=== PATIENT | female | born 1960 | race Caucasian/White ===

== ENCOUNTER 2024-05-15 18:24 | Inpatient (IN) ==
[2024-05-15] MEDS ORDERED: MAGNESIUM HYDROXIDE 400 MG/5 ML ORAL.SUSP PO PRN (20:16)
[2024-05-15 20:22] LABS: Basophils #(Absolute) Auto 0.1 (0.0-0.1); Basophils%(Percent) Auto 0.4 (0.1-0.85); Eosinophils%(Percent) Auto 0.1 % (0.4-2.8); Mean Corpuscular Volume 93.1 fl (81.0-93.7); Monocytes %(Percent)- Auto 7.7 % (3.6-9.8); Platelet Count 207 K/uL (152-353); White Blood Count 12.8 K/uL (4.3-9.3)
[2024-05-15] MEDS: IPRATROPIUM/ALBUTEROL SULFATE 3 ML AMPUL.NEB INH SCH (20:53)
[2024-05-15] MEDS: CEFTRIAXONE SODIUM 1 GM in 0.9 % SODIUM CHLORIDE MB+ 50 ML IV SCH (21:12)
[2024-05-15] MEDS: ACETAMINOPHEN 500 MG TABLET PO PRN (21:28)
[2024-05-15] MEDS: AZITHROMYCIN 500 MG 500 MG in 0.9 % SODIUM CHLORIDE 250 ML IV SCH (21:57)
[2024-05-16] MEDS: 0.9 % SODIUM CHLORIDE 500 ML IV ONE (00:51)
[2024-05-16] MEDS: PANTOPRAZOLE SODIUM 40 MG TABLET.DR PO SCH (00:51)
[2024-05-16] MEDS: MAGNESIUM OXIDE 400 MG TABLET PO ONE (00:51)
[2024-05-16] MEDS: METHYLPREDNISOLONE SOD SUCC/PF 40 MG/ML VIAL INJ SCH (00:52)
[2024-05-16] MEDS: 0.9 % SODIUM CHLORIDE 1000 ML 1,000 ML IV SCH (01:34)
[2024-05-16 05:58] LABS: Basophils%(Percent) Auto 0.2 (0.1-0.85); Granulocytes % - Auto 91.4 % (47.8-71.3); Granulocytes#(Absolute)- Auto 7.9 (2.3-6.0); Hematocrit 29.3 % (35.9-46.7); Mean Corpuscular Volume 93.3 fl (81.0-93.7); Monocytes #(Absolute)- Auto 0.3 (1.1-3.1); Monocytes %(Percent)- Auto 2.9 % (3.6-9.8); Platelet Count 181 K/uL (152-353); White Blood Count 8.6 K/uL (4.3-9.3)
[2024-05-16 06:55] LABS: PH BODY FLUID EXCP BLOOD 7.5 (5 - 9); Specific Gravity Urine 1.015 (1.001-1.035); Urine Appearance HAZY (CLEAR); Urine Blood NEGATIVE (NEG - TRACE); Urine Color DARK YELLOW (STRAW/YELL.); Urine Urobilinogen Normal (NORMAL)
[2024-05-16 06:56] LABS: Urine Amorphous Sediment Negative (Negative); Urine Yeast Negative (Negative)
[2024-05-16] MEDS: BUDESONIDE 0.5 MG/2 ML AMPUL.NEB INH SCH (07:42)
[2024-05-16] MEDS ORDERED: PANTOPRAZOLE SODIUM 40 MG TABLET.DR PO SCH (09:00)
[2024-05-16] MEDS: ENOXAPARIN SODIUM 40 MG/0.4 ML SYRINGE SUBQ SCH (10:03)
[2024-05-16] MEDS ORDERED: FLUCONAZOLE 10 MG/ML PO SCH (12:45)
[2024-05-16] MEDS: HYDROCODONE/CHLORPHEN P-STIREX 5 ML SUS.ER.12H PO SCH (15:54)
[2024-05-16] MEDS: FLUCONAZOLE-NACL 200 MG/100 ML 200 MG/100 ML PIGGYBACK IV ONE ×2 (15:54→15:58)
[2024-05-16] MEDS: LEVOTHYROXINE SODIUM 75 MCG TABLET PO SCH (15:58)
--- NOTE | 2024-05-16 16:36 | History & Physical Report ---
H&P: HPI History of Present Illness Chief complaint: PNEUMONIA Narrative: Patient is a 64 year old female direct admitted to med/surg for observation and treatment for pneumonia, failed out-patient treatment, and history of seizure. She states she got a chill Tuesday night and just was not able to get warm. Chief complaint today, patient feels weak, mouth is sore (has developed thrush secondary to prior antibiotics), and abdomen tender secondary to cough. Review of Systems Status of ROS 10 or more systems reviewed and unremark able except as noted in history and below Constitutional Reports: fever, chills and fatigue; Denies: change in weight Eyes Denies: change in vision, blurry vision or blind spots Ears, nose, mouth, and throat Reports: hoarseness and mouth pain; Denies: throat pain, neck pain, throat swelling, difficulty swallowing, swelling of lips/tongue or dry mouth Cardiovascular Denies: chest pain, palpitations, edema, swelling of feet/ankles or lightheadedness Respiratory Reports: shortness of breath, cough and wheezing Gastrointestinal Reports: abdominal pain (secondary to coughing); Denies: nausea, vomiting, coffee grounds in vomit, heartburn or diarrhea Genitourinary Denies: painful urination, urinary frequency, urinary urgency or urinary incontinence Musculoskeletal Denies: back pain, neck pain, extremity pain or extremity swelling Integumentary/Breast Denies: rash, itching, redness, skin pain or skin tenderness Neurological Denies: headache, numbness in extremities, weakness in extremities or lack of coordination Psychiatric Denies: anxiety, mood swings, panic attacks, change in sleep pattern or hopelessness Endocrine Denies: excessive urination, excessive thirst, fatigue or cold intolerance Hematologic/Lymphatic Denies: easy bruising, easy bleeding or enlarged lymph nodes Allergic/Immunologic Denies: hives, throat swelling, tongue swelling or facial swelling PFSH PFSH Medical History (Updated 05/16/24 @ 16:00 by NATALIIA Zacarias) Hypothyroidism Squamous cell carcinoma Hypertension Surgical History (Updated 05/16/24 @ 05:58 by Lanny Odonnell LPN) History of hemorrhoidectomy History of tonsillectomy History of cholecystectomy Social History Problems where you live: no known problems Highest level of school completed/degree received: [employer] Gender Identity: female Meds Home Medications and Allergies Home Medications Medication Instructions Recorded Confirmed Type alendronate 70 mg tablet 70 mg PO QWEEK 05/16/24 05/16/24 History calcium carbonate (Calcium 600) 600 mg PO DAILY 05/16/24 05/16/24 History divalproex 250 mg tablet,extended 500 mg PO BID 05/16/24 05/16/24 History release 24 hr hydrochlorothiazide 12.5 mg tablet 12.5 mg PO DAILY 05/16/24 05/16/24 History levothyroxine 75 mcg tablet 75 mcg PO QDAC 05/16/24 05/16/24 History Allergies Allergy/AdvReac Type Severity Reaction Status Date / Time No Known Drug Allergies Allergy Verified 05/15/24 20:08 Exam Exam: Patient in low miller's position upon entering room for exam. Patient's was at bedside. Constitutional: abnormal general appearance (lethargic), distress noted (mild), average body habitus, no limitations and alert Vital Signs - 24 hr 05/15/24 20:24 05/15/24 20:24 05/15/24 20:42 Temperature 98.4 F Pulse Rate [Left B rachial] 115 H Respiratory Rate 18 Blood Pressure [Le ft Arm] 146/57 Pulse Oximetry 98 95 [facility] 05/16/24 00:00 05/16/24 02:12 05/16/24 04:00 Temperature 98.5 F 98.5 F Pulse Rate [Left B rachial] 88 73 Respiratory Rate 17 17 Blood Pressure [Le ft Arm] 100/40 110/56 Pulse Oximetry 95 96 96 [facility] Air 05/16/24 07:42 05/16/24 08:00 05/16/24 12:00 Temperature 97.6 F 98.8 F Pulse Rate [Left B rachial] 87 74 Respiratory Rate 18 18 Blood Pressure [Le ft Arm] 122/55 113/52 Pulse Oximetry 98 96 94 L [facility] Room Air 05/16/24 14:51 Temperature Pulse Rate [Left B rachial] Respiratory Rate Blood Pressure [Le ft Arm] Pulse Oximetry 98 [facility] HENMT: normocephalic, head/scalp atraumatic, hearing grossly normal bilaterally, external ears normal, external nose normal, oropharynx abnormal (erythema) and gingiva abnormal Eyes: PERRL, conjunctivae normal, fundi normal bilaterally, alignment normal, periorbital findings normal and visual acuity normal Neck/C-Spine: visual inspection normal, trachea midline, cervical spine nontender, cervical full ROM noted and supple Lymph: no lymphadenopathy noted and no lymphedema noted Chest: inspection of chest normal and palpation of chest normal Respiratory: breath sounds unequal (R>L), abnormal respiratory effort (shallow breathing) and auscultation abnormal (diminished breath sound) and (bronchial breath sounds) (R middle lobe) Cardiovascular: normal heart rate noted, regular rhythm noted and no murmur Gastrointestinal: abdomen normal to inspection, abdomen soft to palpation, nontender to palpation, nondistended and normoactive bowel sounds Genitourinary: no CVA tenderness and bladder normal to palpation Back/Pelvis: spine normal to inspection, no thoracic spine tenderness, no lumbar spine tenderness, thoracic spine ROM normal and lumbar spine ROM normal Extremities: normal to inspection, normal to palpation, no tenderness, full ROM, no joint enlargement and no deformity Neurology: tub mender II-XII intact, no movement abnormality noted, no focal motor deficit noted, no sensory deficits noted, deep tendon reflexes 2+ bilaterally, gait normal, speech abnormality noted (hoarse) and coordination normal Psychiatry: Mental Status Exam documented within this Exam's Psych section mental status grossly normal, oriented x3, thought process normal, cooperative, affect normal, psychomotor activity normal and memory normal Skin: skin color normal, no rash, no lesions, no wounds and skin turgor normal Assessment and Plan Assessment and Plan (1) Pneumonia: Qualifiers: Pneumonia type: due to Pneumococcus Laterality: right Lung location: middle lobe of lung Qualified Code(s): J13 - Pneumonia due to Streptococcus pneumoniae Code(s): J18.9 - Pneumonia, unspecified organism (2) History of seizures: Code(s): Z87.898 - Personal history of other specified conditions (3) Thrush, oral: Code(s): B37.0 - Candidal stomatitis (4) Cough: Qualifiers: Cough type: acute Qualified Code(s): R05.1 - Acute cough Code(s): R05.9 - Cough, unspecified (5) Fever: Qualifiers: Fever type: due to other condition Qualified Code(s): R50.81 - Fever presenting with conditions classified elsewhere Code(s): R50.9 - Fever, unspecified (6) General weakness: Code(s): R53.1 - Weakness Plan Sodium Chloride 1,000 mls @ 125 mls/hr IV CONT Albuterol Sulfate 3 ml INH Q6H Ceftriaxone Sodium 1 gm in Sodium Chloride 50 mls @ 100 mls/hr IV DAILY Azithromycin 500 mg in Sodium Chloride 250 mls @ 250 mls/hr IV DAILY Pantoprazole Sodium 40 mg PO Q12H Methylprednisolone Sodium Succinate 40 mg INJ Q8H Enoxaparin Sodium 40 mg SUBQ DAILY Budesonide 1 mg INH RBID Chlorphenir/Hydrocodone Polistirex 5 ml PO Q12H Levothyroxine Sodium 75 mcg PO QDAC Divalproex Sodium 500 mg PO BID Fluconazole 100 mg in 50 mls @ 50 mls/hr IV Q24H Sodium Chloride 3 ml INH ONCE Acetaminophen 500 mg PO Q6H PRN Magnesium Hydroxide 2,400 mg PO DAILY PRN Results Labs Labs: CBC WBC 8.6 K/uL (4.3-9.3) 05/16/24 05:30 RBC 3.1 M/uL (4.00-5.50) L 05/16/24 05:30 Hgb 10.2 gm/dL (12.5-15.8) L 05/16/24 05:30 Hct 29.3 % (35.9-46.7) L 05/16/24 05:30 MCV 93.3 fl (81.0-93.7) 05/16/24 05:30 MCH 32.7 pg (27.6-32.2) H 05/16/24 05:30 MCHC 35.0 g/dl (33.1-35.3) 05/16/24 05:30 RDW 14.2 % (11.4-14.2) 05/16/24 05:30 Plt Count 181 K/uL (152-353) 05/16/24 05:30 MPV 8.4 fl (6.9-10.8) 05/16/24 05:30 Gran % 91.4 % (47.8-71.3) H 05/16/24 05:30 Lymph % (Auto) 5.5 % (20.0-43.0) L 05/16/24 05:30 [place] % (Auto) 2.9 % (3.6-9.8) L 05/16/24 05:30 Eos % (Auto) 0.0 % (0.4-2.8) L 05/16/24 05:30 Baso % (Auto) 0.2 (0.1-0.85) 05/16/24 05:30 Lymph # (Auto) 0.5 (1.1-3.1) L 05/16/24 05:30 [place] # (Auto) 0.3 (1.1-3.1) L 05/16/24 05:30 Eos # (Auto) 0.0 (0.0-0.2) 05/16/24 05:30 Baso # (Auto) 0.0 (0.0-0.1) 05/16/24 05:30 Absolute Gran (auto) 7.9 (2.3-6.0) H 05/16/24 05:30 BMP Sodium 134 mmol/L (136-145) L 05/16/24 05:30 Potassium 4.0 mmol/L (3.6-5.2) 05/16/24 05:30 Chloride 98.0 mmol/L (98-107) 05/16/24 05:30 Carbon Dioxide 30 mmol/L (21-32) 05/16/24 05:30 Anion Gap 6.0 mEq/L (4-14) 05/16/24 05:30 BUN 12 mg/dL (7-18) 05/16/24 05:30 Creatinine 0.7 mg/dL (0.6-1.3) 05/16/24 05:30 Estimated GFR 95.3 (>59.9) 05/16/24 05:30 Glucose 139 mg/dL (70-110) H 05/16/24 05:30 Calcium 9.4 mg/dL (8.5-10.1) 05/16/24 05:30 Phosphorus 3.7 mg/dL (2.5-4.9) 05/16/24 05:30 Magnesium 1.7 mg/dL (1.8-2.4) L 05/16/24 05:30 Total Bilirubin 0.37 mg/dL (0.0-1.0) 05/16/24 05:30 AST 13 U/L (15-37) L 05/16/24 05:30 ALT 11 U/L (30-65) L 05/16/24 05:30 Alkaline Phosphatase 46 U/L (50-136) L 05/16/24 05:30 Total Protein 6.4 g/dL (6.4-8.2) 05/16/24 05:30 Albumin 2.5 g/dL (3.4-5.0) L 05/16/24 05:30 Liver Function Total Bilirubin 0.37 mg/dL (0.0-1.0) 05/16/24 05:30 AST 13 U/L (15-37) L 05/16/24 05:30 ALT 11 U/L (30-65) L 05/16/24 05:30 Alkaline Phosphatase 46 U/L (50-136) L 05/16/24 05:30 Total Protein 6.4 g/dL (6.4-8.2) 05/16/24 05:30 Albumin 2.5 g/dL (3.4-5.0) L 05/16/24 05:30 Urine Urine Color Dark yellow (STRAW/YELL.) 05/16/24 06:40 Urine Appearance Hazy (CLEAR) 05/16/24 06:40 Ur Specific [place] 1.015 (1.001-1.035) 05/16/24 06:40 Urine Protein Negative (NEGATIVE) 05/16/24 06:40 Urine Glucose (UA) Normal (NORMAL) 05/16/24 06:40 Urine Ketones Negative (NEGATIVE) 05/16/24 06:40 Urine Occult Blood Negative (NEG - TRACE) 05/16/24 06:40 Urine Nitrite Negative (NEGATIVE) 05/16/24 06:40 Urine Bilirubin Negative (NEGATIVE) 05/16/24 06:40 Urine Urobilinogen Normal (NORMAL) 05/16/24 06:40 Ur Leukocyte Esterase Positive (NEGATIVE) 05/16/24 06:40 Imaging Imaging ordered: Chest x-ray Radiologist's impression: Two-view chest Date of Service: 05/15/24 HISTORY: Pneumonia COMPARISON: 05/18/2023 FINDINGS: Heart size is normal. Nora are normal. Lungs well inflated. Right lung and left upper lung skinner are clear. There is some peribronchial infiltrate in the retrocardiac area medial left lung base likely a small area of pneumonia. No pleural effusions are identified. Bony thorax is unremarkable IMPRESSION: Medial basal lung infiltrate likely bronchopneumonia
[2024-05-16] MEDS: SODIUM CHLORIDE FOR INHALATION 3 ML VIAL.NEB INH ONE ×2 (17:27→17:28)
[2024-05-16] MEDS: DIVALPROEX SODIUM 250 MG TAB.ER.24H PO SCH (20:25)
[2024-05-17 04:26] LABS: Basophils%(Percent) Auto 0.2 (0.1-0.85); Granulocytes % - Auto 92.1 % (47.8-71.3); Granulocytes#(Absolute)- Auto 6.1 (2.3-6.0); Hematocrit 26.5 % (35.9-46.7); Mean Corpuscular Volume 92.9 fl (81.0-93.7); Monocytes #(Absolute)- Auto 0.2 (1.1-3.1); Monocytes %(Percent)- Auto 3.5 % (3.6-9.8); Platelet Count 163 K/uL (152-353); White Blood Count 6.7 K/uL (4.3-9.3)
[2024-05-17 05:24] LABS: Potassium 3.2 mmol/L (3.6-5.2)
--- NOTE | 2024-05-17 10:11 | Progress Note ---
Progress Note: Subjective Subjective Interval history: Patient has a chief complaint today of itching. She noticed itching started yesterday after lunch time, no hives/rashes/lesion visible. Physical therapy to start chest percussions today. Nurse continues to encourage ambulating and use of I & S for good deep breaths. Morning lab work reflect a need for electrolyte replenishment. Exam Exam: Patient up in recliner at time of exam. Constitutional: abnormal general appearance (lethargic), distress noted (mild), average body habitus, no limitations and alert Vital Signs - 24 hr 05/16/24 12:00 05/16/24 14:51 05/16/24 16:00 Temperature 98.8 F 97.8 F Pulse Rate [Left B rachial] 74 87 Respiratory Rate 18 18 Blood Pressure [Le ft Arm] 113/52 116/45 Pulse Oximetry 94 L 98 94 L Oxygen Delivery [facility] Room Air Room Air 05/16/24 19:18 05/16/24 20:24 05/16/24 23:17 Temperature 98.3 F 98.3 F Pulse Rate [Left B rachial] 75 81 Respiratory Rate 17 19 Blood Pressure [Le ft Arm] 96/42 114/38 Pulse Oximetry 96 96 95 Oxygen Delivery [facility] Room Air 05/17/24 02:00 05/17/24 03:49 05/17/24 07:32 Temperature 97.8 F Pulse Rate [Left B rachial] 85 Respiratory Rate 18 Blood Pressure [Le ft Arm] 91/34 Pulse Oximetry 96 94 L 94 L Oxygen Delivery [facility] Room Air 05/17/24 07:47 Temperature 97.5 F L Pulse Rate [Left B rachial] 75 Respiratory Rate 18 Blood Pressure [Le ft Arm] 118/56 Pulse Oximetry 93 L Oxygen Delivery [facility] Room Air HENMT: normocephalic, head/scalp atraumatic, hearing grossly normal bilaterally, external ears normal, external nose normal, oropharynx abnormal (erythema) and gingiva abnormal Eyes: PERRL, conjunctivae normal, fundi normal bilaterally, alignment normal, periorbital findings normal and visual acuity normal Neck/C-Spine: visual inspection normal, trachea midline, cervical spine nontender, cervical full ROM noted and supple Lymph: no lymphadenopathy noted and no lymphedema noted Chest: inspection of chest normal and palpation of chest normal Respiratory: breath sounds unequal (Left), abnormal respiratory effort (shallow breathing) and auscultation abnormal (diminished breath sound) (LL Lobe some sub-segmental atelectasis) Cardiovascular: normal heart rate noted, regular rhythm noted and no murmur Gastrointestinal: abdomen normal to inspection, abdomen soft to palpation, nontender to palpation, nondistended and normoactive bowel sounds Genitourinary: no CVA tenderness and bladder normal to palpation Back/Pelvis: spine normal to inspection, no thoracic spine tenderness, no lumbar spine tenderness, thoracic spine ROM normal and lumbar spine ROM normal Extremities: normal to inspection, normal to palpation, no tenderness, full ROM, no joint enlargement and no deformity Neurology: coupler II-XII intact, no movement abnormality noted, no focal motor deficit noted, no sensory deficits noted, deep tendon reflexes 2+ bilaterally, gait normal, speech abnormality noted (hoarse) and coordination normal Psychiatry: Mental Status Exam documented within this Exam's Psych section mental status grossly normal, oriented x3, thought process normal, cooperative, affect normal, psychomotor activity normal and memory normal Skin: skin color normal, no rash, no lesions, no wounds and skin turgor normal Progress Note: Objective Labs Labs: CBC WBC 6.7 K/uL (4.3-9.3) 05/17/24 04:20 RBC 2.9 M/uL (4.00-5.50) L 05/17/24 04:20 Hgb 9.3 gm/dL (12.5-15.8) L 05/17/24 04:20 Hct 26.5 % (35.9-46.7) L 05/17/24 04:20 MCV 92.9 fl (81.0-93.7) 05/17/24 04:20 MCH 32.6 pg (27.6-32.2) H 05/17/24 04:20 MCHC 35.1 g/dl (33.1-35.3) 05/17/24 04:20 RDW 14.3 % (11.4-14.2) H 05/17/24 04:20 Plt Count 163 K/uL (152-353) 05/17/24 04:20 MPV 8.4 fl (6.9-10.8) 05/17/24 04:20 Gran % 92.1 % (47.8-71.3) H 05/17/24 04:20 Lymph % (Auto) 4.2 % (20.0-43.0) L 05/17/24 04:20 [place] % (Auto) 3.5 % (3.6-9.8) L 05/17/24 04:20 Eos % (Auto) 0.0 % (0.4-2.8) L 05/17/24 04:20 Baso % (Auto) 0.2 (0.1-0.85) 05/17/24 04:20 Lymph # (Auto) 0.3 (1.1-3.1) L 05/17/24 04:20 [place] # (Auto) 0.2 (1.1-3.1) L 05/17/24 04:20 Eos # (Auto) 0.0 (0.0-0.2) 05/17/24 04:20 Baso # (Auto) 0.0 (0.0-0.1) 05/17/24 04:20 Absolute Gran (auto) 6.1 (2.3-6.0) H 05/17/24 04:20 BMP Sodium 129 mmol/L (136-145) L 05/17/24 04:20 Potassium 3.2 mmol/L (3.6-5.2) L 05/17/24 04:20 Chloride 94.0 mmol/L (98-107) L 05/17/24 04:20 Carbon Dioxide 26 mmol/L (21-32) 05/17/24 04:20 Anion Gap 9.0 mEq/L (4-14) 05/17/24 04:20 BUN 11 mg/dL (7-18) 05/17/24 04:20 Creatinine 0.6 mg/dL (0.6-1.3) 05/17/24 04:20 Estimated GFR 98.9 (>59.9) 05/17/24 04:20 Glucose 177 mg/dL (70-110) H 05/17/24 04:20 Calcium 8.1 mg/dL (8.5-10.1) L 05/17/24 04:20 Phosphorus 2.2 mg/dL (2.5-4.9) L 05/17/24 04:20 Magnesium 1.7 mg/dL (1.8-2.4) L 05/17/24 04:20 Total Bilirubin 0.16 mg/dL (0.0-1.0) 05/17/24 04:20 AST 15 U/L (15-37) 05/17/24 04:20 ALT 17 U/L (30-65) L 05/17/24 04:20 Alkaline Phosphatase 43 U/L (50-136) L 05/17/24 04:20 Total Protein 5.8 g/dL (6.4-8.2) L 05/17/24 04:20 Albumin 2.3 g/dL (3.4-5.0) L 05/17/24 04:20 Liver Function Total Bilirubin 0.16 mg/dL (0.0-1.0) 05/17/24 04:20 AST 15 U/L (15-37) 05/17/24 04:20 ALT 17 U/L (30-65) L 05/17/24 04:20 Alkaline Phosphatase 43 U/L (50-136) L 05/17/24 04:20 Total Protein 5.8 g/dL (6.4-8.2) L 05/17/24 04:20 Albumin 2.3 g/dL (3.4-5.0) L 05/17/24 04:20 Urine Urine Color Dark yellow (STRAW/YELL.) 05/16/24 06:40 Urine Appearance Hazy (CLEAR) 05/16/24 06:40 Ur Specific [place] 1.015 (1.001-1.035) 05/16/24 06:40 Urine Protein Negative (NEGATIVE) 05/16/24 06:40 Urine Glucose (UA) Normal (NORMAL) 05/16/24 06:40 Urine Ketones Negative (NEGATIVE) 05/16/24 06:40 Urine Occult Blood Negative (NEG - TRACE) 05/16/24 06:40 Urine Nitrite Negative (NEGATIVE) 05/16/24 06:40 Urine Bilirubin Negative (NEGATIVE) 05/16/24 06:40 Urine Urobilinogen Normal (NORMAL) 05/16/24 06:40 Ur Leukocyte Esterase Positive (NEGATIVE) 05/16/24 06:40 Imaging Chest x-ray: Radiologist's impression: Two-view chest Date of Service: 05/17/24 HISTORY: Follow-up pneumonia COMPARISON: 05/15/2023 FINDINGS: Heart size is normal. Nora are normal. Lungs are hyperinflated. Right lung and left upper lung skinner remain clear. There is improvement in the previously present retrocardiac left lower lobe infiltrate however there is some new subsegmental atelectasis present within the affected area. Continued follow-up until complete resolution is recommended. No pleural effusions identified. Bony thorax is unremarkable. IMPRESSION: Improving retrocardiac left lower lobe infiltrate but now with some subsegmental atelectasis present. Continued follow-up until complete resolution is recommended. Progress Note: A&P Assessment and Plan (1) Pneumonia: Qualifiers: Pneumonia type: due to Pneumococcus Laterality: right Lung location: middle lobe of lung Qualified Code(s): J13 - Pneumonia due to Streptococcus pneumoniae (2) History of seizures: (3) Thrush, oral: (4) Cough: Qualifiers: Cough type: acute Qualified Code(s): R05.1 - Acute cough (5) Fever: Qualifiers: Fever type: due to other condition Qualified Code(s): R50.81 - Fever presenting with conditions classified elsewhere (6) General weakness: Plan Sodium Chloride 1,000 mls @ 125 mls/hr IV CONT Albuterol Sulfate 3 ml INH Q6H Ceftriaxone Sodium 1 gm in Sodium Chloride 50 mls @ 100 mls/hr IV DAILY Azithromycin 500 mg in Sodium Chloride 250 mls @ 250 mls/hr IV DAILY Pantoprazole Sodium 40 mg PO Q12H Methylprednisolone Sodium Succinate 40 mg INJ Q8H Enoxaparin Sodium 40 mg SUBQ DAILY Budesonide 1 mg INH RBID Chlorphenir/Hydrocodone Polistirex 5 ml PO Q12H Levothyroxine Sodium 75 mcg PO QDAC Divalproex Sodium 500 mg PO BID Fluconazole 100 mg in 50 mls @ 50 mls/hr IV Q24H Sodium Chloride 3 ml INH ONCE Acetaminophen 500 mg PO Q6H PRN Magnesium Hydroxide 2,400 mg PO DAILY PRN Repeat CXR this AM Stop steroid PT to start CP Encourage ambulating and use of I&S for deep breathing Fall Risk Details Abdi Fall Scale Risk Level: Moderate Fall Risk Current Medications: Current Medications Acetaminophen (Acetaminophen 500 Mg Tablet) 500 mg PO Q6H PRN PRN Reason: Headache Last Admin: 05/15/24 21:28 Dose: 500 mg Al Hydroxide/Mg Hydroxide (Magnesium Hydroxide 400 Mg/5 Ml Oral.Susp) 2,400 mg PO DAILY PRN PRN Reason: CONSTIPATION Albuterol Sulfate (Ipratropium/Albuterol Sulfate 3 Ml Ampul.Neb) 3 ml INH Q6H [facility] Last Admin: 05/17/24 07:32 Dose: 3 ml Budesonide (Budesonide 0.5 Mg/2 Ml Ampul.Neb) 1 mg INH RBID [facility] Last Admin: 05/17/24 07:32 Dose: 1 mg Chlorphenir/Hydrocodone Polistirex (Hydrocodone/Chlorphen P-Stirex 5 Ml Citlaly.Er.12h) 5 ml PO Q12H [facility] Last Admin: 05/17/24 02:18 Dose: 5 ml Divalproex Sodium (Divalproex Sodium 250 Mg Tab.Er.24h) 500 mg PO BID [facility] Last Admin: 05/17/24 08:56 Dose: Not Given Enoxaparin Sodium (Enoxaparin Sodium 40 Mg/0.4 Ml Syringe) 40 mg SUBQ DAILY [facility] Last Admin: 05/17/24 08:55 Dose: 40 mg Hydroxyzine HCl (Hydroxyzine Hcl 25 Mg Tablet) 25 mg PO Q4H PRN PRN Reason: Itching Ceftriaxone Sodium 1 gm/ (Sodium Chloride) 50 mls @ 100 mls/hr IV DAILY [facility] Last Admin: 05/17/24 08:55 Dose: 100 mls/hr Azithromycin 500 mg/ Sodium (Chloride) 250 mls @ 250 mls/hr IV DAILY [facility] Last Admin: 05/17/24 08:55 Dose: 167 mls/hr Sodium Chloride (Sodium Chloride) 1,000 mls @ 125 mls/hr IV CONT [facility] Last Admin: 05/17/24 02:18 Dose: 125 mls/hr Fluconazole (Fluconazole-Nacl 200 Mg/100 Ml) 100 mg in 50 mls @ 50 mls/hr IV Q24H [facility] Potassium Chloride (Potassium Cl 10 Meq/100 Ml [place]) 10 meq in 100 mls @ 100 mls/hr IV ONCE RICHAR Potassium Chloride (Potassium Cl 10 Meq/100 Ml [place]) 10 meq in 100 mls @ 100 mls/hr IV ONCE [facility] Albumin Human (Albumin Human 25%) 100 mls @ 60 mls/hr IV Q2H [facility] Stop: 05/17/24 13:39 Levothyroxine Sodium (Levothyroxine Sodium 75 Mcg Tablet) 75 mcg PO QDAC [facility] Last Admin: 05/17/24 08:55 Dose: 75 mcg Loratadine (Loratadine 5 Mg/5 Ml Solution) 10 mg PO DAILY [facility] Magnesium (Magnesium Oxide 400 Mg Tablet) 400 mg PO ONCE ONE Stop: 05/17/24 09:42 Methylprednisolone Sodium Succinate (Methylprednisolone Sod Succ/Pf 40 Mg/Ml Vial) 40 mg INJ Q8H [facility] Last Admin: 05/17/24 08:55 Dose: 40 mg Pantoprazole Sodium (Pantoprazole Sodium 40 Mg Tablet.Dr) 40 mg PO Q12H [facility] Last Admin: 05/17/24 02:18 Dose: 40 mg Potassium Chloride (Potassium Chloride 20 Meq Tab.Er.Prt) 40 meq PO ONCE ONE Stop: 05/17/24 09:42 Potassium Phosphate (Potassium Phosphate 500 Mg Tablet.[place]) 500 mg PO ONCE ONE Stop: 05/17/24 09:42 Sodium Chloride (Sodium Chloride 1,000 Mg Tablet) 1,000 mg PO Q12H [facility] Time Spent With Patient Time: Total time spent is greater than 50% in coordination of care (as documented) at patient's floor/unit and/or counseling patient:
[2024-05-17] MEDS: POTASSIUM CHLORIDE IN WATER 10 MEQ/100 ML PIGGYBACK IV ONE ×2 (10:46→12:06)
[2024-05-17] MEDS: MAGNESIUM OXIDE 400 MG TABLET PO ONE (10:46)
[2024-05-17] MEDS: SODIUM CHLORIDE 1,000 MG TABLET PO SCH (10:47)
[2024-05-17] MEDS: POTASSIUM CHLORIDE 20 MEQ TAB.ER.PRT PO ONE (10:47)
[2024-05-17] MEDS: LORATADINE 5 MG/5 ML PO SCH (10:47)
[2024-05-17] MEDS: hydrOXYzine HCL 25 MG TABLET PO PRN (10:47)
[2024-05-17] MEDS: POTASSIUM PHOSPHATE 500 MG TABLET.SOL PO ONE (10:47)
[2024-05-17] MEDS: ALBUMIN HUMAN 25% 100 ML IV SCH (10:47)
[2024-05-17] MEDS: FLUCONAZOLE IV SCH (13:28)
[2024-05-17] MEDS: SODIUM CHLORIDE IV SCH (13:28)
[2024-05-17] MEDS: FUROSEMIDE 20 MG/2 ML VIAL IV ONE (17:55)
[2024-05-18 05:14] LABS: Monocytes #(Absolute)- Auto 0.4 (1.1-3.1)
[2024-05-18 05:17] LABS: Basophils%(Percent) Auto 0.1 (0.1-0.85); Granulocytes % - Auto 88.8 % (47.8-71.3); Granulocytes#(Absolute)- Auto 7.7 (2.3-6.0); Hematocrit 26.9 % (35.9-46.7); Mean Corpuscular Volume 93.7 fl (81.0-93.7); Monocytes %(Percent)- Auto 4.7 % (3.6-9.8); Platelet Count 187 K/uL (152-353); White Blood Count 8.7 K/uL (4.3-9.3)
[2024-05-18 05:32] LABS: Potassium 2.7 mmol/L (3.6-5.2)
--- NOTE | 2024-05-18 05:58 | Event Note ---
Event Note Event Note: 0550 - Call rec'd from MILES Betancourt, who reports a critically low PO4 of 1.3. Weight = 74.54kg. 3mmol Phosphorus in 250ml's NS to infuse over 6hrs with repeat PO4 level 2hrs after infusion complete ordered. K+ 2.7L. 40meq PO KCL x 1 dose now and repeat in 8hrs for total of 80 meq PO KCL ordered with a repeat K+ level 2hrs after second dose ordered.
[2024-05-18] MEDS: POTASSIUM CL 40 MEQ/30 ML 40 MEQ/30 ML LIQUID PO ONE ×2 (06:22→13:52)
[2024-05-18] MEDS: SOD PHOSPHATE IV ONE ×3 (06:50→15:54)
[2024-05-18] MEDS: SODIUM CHLORIDE 0.9% IV ONE ×3 (06:50→15:54)
[2024-05-18] MEDS: 0.9 % SODIUM CHLORIDE 1000 ML 1,000 ML IV SCH (07:14)
[2024-05-18] MEDS: GUAIFENESIN/DEXTROMETHORPHAN 20/200MG/10 ML SOLUTION PO SCH (11:30)
--- NOTE | 2024-05-18 12:08 | Progress Note ---
Progress Note: Subjective Subjective Interval history: Patient sitting up in chair upon entering room. Nurses report no new events overnight. Patient continues to have cough and congestion with SOB upon exertion. Reports eating 1/3 of what she usually eats. Discussed difference and benefit of IS vs. acapella Exam Constitutional: normal general appearance, average body habitus and alert Vital Signs - 24 hr 05/17/24 14:08 05/17/24 16:00 05/17/24 18:26 Temperature 98.4 F Pulse Rate Pulse Rate [Left B rachial] 92 H Respiratory Rate 18 Blood Pressure 109/50 Blood Pressure [Le ft Arm] 109/50 Pulse Oximetry 99 94 L [facility] 05/17/24 19:43 05/17/24 19:55 05/17/24 23:57 Temperature 98.3 F 97.6 F Pulse Rate Pulse Rate [Left B rachial] 70 86 Respiratory Rate 17 19 Blood Pressure Blood Pressure [Le ft Arm] 118/44 128/71 Pulse Oximetry 97 99 94 L Oxygen Delivery [facility] Room Air Room Air 05/18/24 03:10 05/18/24 04:00 05/18/24 07:46 Temperature 97.5 F L 98.3 F Pulse Rate Pulse Rate [Left B rachial] 83 88 Respiratory Rate 18 20 Blood Pressure Blood Pressure [Le ft Arm] 143/71 126/62 Pulse Oximetry 98 97 92 L Oxygen Delivery [facility] Room Air Room Air 05/18/24 08:09 05/18/24 09:40 05/18/24 11:47 Temperature 98.3 F Pulse Rate 67 Pulse Rate [Left B rachial] 82 Respiratory Rate 20 Blood Pressure Blood Pressure [Le ft Arm] 143/68 Pulse Oximetry 92 L 98 Oxygen Delivery [facility] Room Air Room Air HENMT: normocephalic, head/scalp atraumatic, hearing grossly normal bilaterally and external ears normal Eyes: PERRL, EOMs intact bilaterally, conjunctivae normal and no scleral icterus Chest: inspection of chest normal Respiratory: breath sounds equal bilaterally, abnormal respiratory effort (labored) and no rales Cardiovascular: normal heart rate noted, regular rhythm noted, no gallop, no rub and no murmur Gastrointestinal: abdomen normal to inspection, nontender to palpation and nontender to percussion Genitourinary: no CVA tenderness Extremities: normal to inspection, normal to palpation, no tenderness and full ROM Psychiatry: mental status grossly normal, oriented x3 and cooperative Skin: skin color normal, no rash, no lesions and no ecchymosis noted Progress Note: Objective Labs Labs: CBC WBC 8.7 K/uL (4.3-9.3) 05/18/24 04:28 RBC 2.9 M/uL (4.00-5.50) L 05/18/24 04:28 Hgb 9.6 gm/dL (12.5-15.8) L 05/18/24 04:28 Hct 26.9 % (35.9-46.7) L 05/18/24 04:28 MCV 93.7 fl (81.0-93.7) 05/18/24 04:28 MCH 33.3 pg (27.6-32.2) H 05/18/24 04:28 MCHC 35.5 g/dl (33.1-35.3) H 05/18/24 04:28 RDW 14.2 % (11.4-14.2) 05/18/24 04:28 Plt Count 187 K/uL (152-353) 05/18/24 04:28 MPV 9.4 fl (6.9-10.8) 05/18/24 04: Gran % 88.8 % (47.8-71.3) H 05/18/24 04:28 Lymph % (Auto) 6.4 % (20.0-43.0) L 05/18/24 04:28 [place] % (Auto) 4.7 % (3.6-9.8) 05/18/24 04:28 Eos % (Auto) 0.0 % (0.4-2.8) L 05/18/24 04:28 Baso % (Auto) 0.1 (0.1-0.85) 05/18/24 04:28 Lymph # (Auto) 0.6 (1.1-3.1) L 05/18/24 04:28 [place] # (Auto) 0.4 (1.1-3.1) L 05/18/24 04:28 Eos # (Auto) 0.0 (0.0-0.2) 05/18/24 04:28 Baso # (Auto) 0.0 (0.0-0.1) 05/18/24 04:28 Absolute Gran (auto) 7.7 (2.3-6.0) H 05/18/24 04:28 BMP Sodium 135 mmol/L (136-145) L 05/18/24 04:28 Potassium 2.7 mmol/L (3.6-5.2) L 05/18/24 04:28 Chloride 97.0 mmol/L (98-107) L 05/18/24 04:28 Carbon Dioxide 27 mmol/L (21-32) 05/18/24 04:28 Anion Gap 11.0 mEq/L (4-14) 05/18/24 04:28 BUN 8 mg/dL (7-18) 05/18/24 04:28 Creatinine 0.6 mg/dL (0.6-1.3) 05/18/24 04:28 Estimated GFR 98.9 (>59.9) 05/18/24 04:28 Glucose 155 mg/dL (70-110) H 05/18/24 04:28 Calcium 8.1 mg/dL (8.5-10.1) L 05/18/24 04:28 Phosphorus 1.3 mg/dL (2.5-4.9) L* 05/18/24 04:28 Magnesium 1.8 mg/dL (1.8-2.4) 05/18/24 04:28 Total Bilirubin 0.18 mg/dL (0.0-1.0) 05/18/24 04:28 AST 13 U/L (15-37) L 05/18/24 04:28 ALT 21 U/L (30-65) L 05/18/24 04:28 Alkaline Phosphatase 40 U/L (50-136) L 05/18/24 04:28 Total Protein 6.2 g/dL (6.4-8.2) L 05/18/24 04:28 Albumin 3.0 g/dL (3.4-5.0) L 05/18/24 04:28 Liver Function Total Bilirubin 0.18 mg/dL (0.0-1.0) 05/18/24 04:28 AST 13 U/L (15-37) L 05/18/24 04:28 ALT 21 U/L (30-65) L 05/18/24 04:28 Alkaline Phosphatase 40 U/L (50-136) L 05/18/24 04:28 Total Protein 6.2 g/dL (6.4-8.2) L 05/18/24 04:28 Albumin 3.0 g/dL (3.4-5.0) L 05/18/24 04:28 Urine Urine Color Dark yellow (STRAW/YELL.) 05/16/24 06:40 Urine Appearance Hazy (CLEAR) 05/16/24 06:40 Ur Specific [place] 1.015 (1.001-1.035) 05/16/24 06:40 Urine Protein Negative (NEGATIVE) 05/16/24 06:40 Urine Glucose (UA) Normal (NORMAL) 05/16/24 06:40 Urine Ketones Negative (NEGATIVE) 05/16/24 06:40 Urine Occult Blood Negative (NEG - TRACE) 05/16/24 06:40 Urine Nitrite Negative (NEGATIVE) 05/16/24 06:40 Urine Bilirubin Negative (NEGATIVE) 05/16/24 06:40 Urine Urobilinogen Normal (NORMAL) 05/16/24 06:40 Ur Leukocyte Esterase Positive (NEGATIVE) 05/16/24 06:40 Progress Note: A&P Assessment and Plan (1) Klebsiella pneumonia: (2) History of seizures: (3) Thrush, oral: (4) Cough: Qualifiers: Cough type: acute Qualified Code(s): R05.1 - Acute cough (5) Fever: Qualifiers: Fever type: due to other condition Qualified Code(s): R50.81 - Fever presenting with conditions classified elsewhere (6) General weakness: Plan Respiratory therapy for IS and acapella PT for chest PT Encourage ambulating and use of I&S for deep breathing Robitussin for cough and congestion Follow labs Replace Phos Increase fluids O2 Qualifier Fall Risk Details Abdi Fall Scale Risk Level: Low Fall Risk Current Medications: Current Medications Acetaminophen (Acetaminophen 500 Mg Tablet) 500 mg PO Q6H PRN PRN Reason: Headache Last Admin: 05/15/24 21:28 Dose: 500 mg Al Hydroxide/Mg Hydroxide (Magnesium Hydroxide 400 Mg/5 Ml Oral.Susp) 2,400 mg PO DAILY PRN PRN Reason: CONSTIPATION Albuterol Sulfate (Ipratropium/Albuterol Sulfate 3 Ml Ampul.Neb) 3 ml INH Q6H RICHAR Last Admin: 05/18/24 08:07 Dose: 3 ml Budesonide (Budesonide 0.5 Mg/2 Ml Ampul.Neb) 1 mg INH RBID [facility] Last Admin: 05/18/24 08:06 Dose: 1 mg Divalproex Sodium (Divalproex Sodium 250 Mg Tab.Er.24h) 500 mg PO BID [facility] Last Admin: 05/18/24 09:30 Dose: Not Given Enoxaparin Sodium (Enoxaparin Sodium 40 Mg/0.4 Ml Syringe) 40 mg SUBQ DAILY [facility] Last Admin: 05/18/24 09:30 Dose: 40 mg Guaifenesin (Guaifenesin/Dextromethorphan 20/200mg/10 Ml Solution) 5 ml PO Q4H [facility] Last Admin: 05/18/24 11:30 Dose: 5 ml Hydroxyzine HCl (Hydroxyzine Hcl 25 Mg Tablet) 25 mg PO Q4H PRN PRN Reason: Itching Last Admin: 05/17/24 10:47 Dose: 25 mg Ceftriaxone Sodium 1 gm/ (Sodium Chloride) 50 mls @ 100 mls/hr IV DAILY [facility] Last Infusion: 05/18/24 10:02 Dose: Infused Azithromycin 500 mg/ Sodium (Chloride) 250 mls @ 250 mls/hr IV DAILY [facility] Last Infusion: 05/18/24 10:58 Dose: Infused Fluconazole (Fluconazole-Nacl 200 Mg/100 Ml) 100 mg in 50 mls @ 50 mls/hr IV Q24H [facility] Last Infusion: 05/17/24 14:28 Dose: Infused Sodium Chloride (Sodium Chloride) 1,000 mls @ 75 mls/hr IV CONT [facility] Last Admin: 05/18/24 08:00 Dose: 75 mls/hr Sodium Phosphate 22.3575 mmol/ (Sodium Chloride) 257.4525 mls @ 42 mls/hr IV ONCE ONE Stop: 05/18/24 15:07 Last Admin: 05/18/24 09:48 Dose: 42 mls/hr Sodium Phosphate 29.81 mmol/ (Sodium Chloride) 259.9367 mls @ 42 mls/hr IV ONCE ONE Stop: 05/18/24 22:11 Levothyroxine Sodium (Levothyroxine Sodium 75 Mcg Tablet) 75 mcg PO QDAC [facility] Last Admin: 05/18/24 06:30 Dose: 75 mcg Loratadine (Loratadine 5 Mg/5 Ml Solution) 10 mg PO DAILY [facility] Last Admin: 05/18/24 09:30 Dose: 10 mg Methylprednisolone Sodium Succinate (Methylprednisolone Sod Succ/Pf 40 Mg/Ml Vial) 40 mg INJ Q8H [facility] Last Admin: 05/18/24 09:27 Dose: 40 mg Pantoprazole Sodium (Pantoprazole Sodium 40 Mg Tablet.Dr) 40 mg PO Q12H [facility] Last Admin: 05/18/24 11:30 Dose: 40 mg Potassium Chloride (Potassium Cl 40 Meq/30 Ml 40 Meq/30 Ml Liquid) 40 meq PO ONCE ONE Stop: 05/18/24 14:01 Sodium Chloride (Sodium Chloride 1,000 Mg Tablet) 1,000 mg PO Q12H [facility] Last Admin: 05/18/24 11:30 Dose: 1,000 mg Time Spent With Patient Time: Total time spent is greater than 50% in coordination of care (as documented) at patient's floor/unit and/or counseling patient:
[2024-05-19 05:27] LABS: Eosinophils%(Percent) Auto 0.1 % (0.4-2.8)
[2024-05-19 05:34] LABS: Basophils%(Percent) Auto 0.2 (0.1-0.85); Granulocytes % - Auto 87.7 % (47.8-71.3); Granulocytes#(Absolute)- Auto 7.6 (2.3-6.0); Hematocrit 27.9 % (35.9-46.7); Mean Corpuscular Volume 93.2 fl (81.0-93.7); Monocytes #(Absolute)- Auto 0.5 (1.1-3.1); Monocytes %(Percent)- Auto 6.2 % (3.6-9.8); Platelet Count 203 K/uL (152-353); White Blood Count 8.6 K/uL (4.3-9.3)
[2024-05-19 05:50] LABS: Potassium 2.4 mmol/L (3.6-5.2)
[2024-05-19 06:03] LABS: RBC Morphology Normal (Normal); Total Cells Counted 100
[2024-05-19] MEDS ORDERED: POTASSIUM CL 40 MEQ/30 ML 40 MEQ/30 ML LIQUID PO SCH (08:00)
[2024-05-19] MEDS ORDERED: POTASSIUM PHOSPHATE 500 MG TABLET.SOL PO SCH ×2 (09:00)
[2024-05-19] MEDS: POTASSIUM CL 40 MEQ/30 ML 40 MEQ/30 ML LIQUID PO SCH (09:11)
[2024-05-19] MEDS: POTASSIUM CL 20 MEQ/100 ML SOL 20 MEQ/100 ML PIGGYBACK IV ONE (09:11)
[2024-05-19] MEDS: POTASSIUM CHLORIDE 20 MEQ TAB.ER.PRT PO ONE (09:58)
[2024-05-19] MEDS: POTASSIUM PHOSPHATE 500 MG TABLET.SOL PO SCH (10:02)
--- NOTE | 2024-05-19 11:54 | Progress Note ---
Progress Note: Subjective Subjective Interval history: Patient sitting up in bed taking a breathing treatment upon entering room. No over night events reported by nurse. Chest congestion has shown some improvement. Patient is eating and drink well today. Exam Constitutional: normal general appearance, no apparent distress, average body habitus and alert Vital Signs - 24 hr 05/18/24 11:47 05/18/24 14:16 05/18/24 16:00 Temperature 98.3 F 98.3 F Pulse Rate [Left B rachial] 82 87 Respiratory Rate 20 20 Blood Pressure [Le ft Arm] 143/68 142/66 Pulse Oximetry 98 97 96 Oxygen Delivery [facility] Room Air Room Air 05/18/24 20:00 05/18/24 20:01 05/19/24 00:00 Temperature 97.8 F 97.6 F Pulse Rate [Left B rachial] 80 87 Respiratory Rate 18 19 Blood Pressure [Le ft Arm] 151/65 137/63 Pulse Oximetry 96 97 92 L Oxygen Delivery [facility] Room Air 05/19/24 01:18 05/19/24 04:00 05/19/24 07:36 Temperature 97.8 F 97.8 F Pulse Rate [Left B rachial] 86 94 H Respiratory Rate 20 20 Blood Pressure [Le ft Arm] 145/60 142/58 Pulse Oximetry 97 94 L 97 Oxygen Delivery [facility] Room Air 05/19/24 07:41 Temperature Pulse Rate [Left B rachial] Respiratory Rate Blood Pressure [Le ft Arm] Pulse Oximetry 97 Oxygen Delivery Me [facility] HENMT: normocephalic, head/scalp atraumatic, hearing grossly normal bilaterally, external ears normal, EACs normal, TMs normal bilaterally, external nose normal, oral mucous membranes normal and oropharynx normal Eyes: PERRL, EOMs intact bilaterally, conjunctivae normal and no scleral icterus Chest: inspection of chest normal Respiratory: breath sounds equal bilaterally, normal respiratory effort, auscultation abnormal, no wheezes and rales noted Cardiovascular: normal heart rate noted, regular rhythm noted, no gallop, no rub, no murmur and no JVD Gastrointestinal: abdomen normal to inspection, abdomen soft to palpation, nontender to palpation, nontender to percussion, nondistended and normoactive bowel sounds Genitourinary: no CVA tenderness Extremities: normal to inspection, normal to palpation, no tenderness and full ROM Psychiatry: mental status grossly normal and cooperative Skin: skin color normal, no rash, no lesions, no ecchymosis noted and no wounds Progress Note: Objective Labs Labs: CBC WBC 8.6 K/uL (4.3-9.3) 05/19/24 04:38 RBC 3.0 M/uL (4.00-5.50) L 05/19/24 04:38 Hgb 9.8 gm/dL (12.5-15.8) L 05/19/24 04:38 Hct 27.9 % (35.9-46.7) L 05/19/24 04:38 MCV 93.2 fl (81.0-93.7) 05/19/24 04:38 MCH 32.8 pg (27.6-32.2) H 05/19/24 04:38 MCHC 35.2 g/dl (33.1-35.3) 05/19/24 04:38 RDW 14.5 % (11.4-14.2) H 05/19/24 04:38 Plt Count 203 K/uL (152-353) 05/19/24 04:38 MPV 8.8 fl (6.9-10.8) 05/19/24 04:38 Gran % 87.7 % (47.8-71.3) H 05/19/24 04:38 Lymph % (Auto) 5.8 % (20.0-43.0) L 05/19/24 04:38 [place] % (Auto) 6.2 % (3.6-9.8) 05/19/24 04:38 Eos % (Auto) 0.1 % (0.4-2.8) L 05/19/24 04:38 Baso % (Auto) 0.2 (0.1-0.85) 05/19/24 04:38 Lymph # (Auto) 0.5 (1.1-3.1) L 05/19/24 04:38 [place] # (Auto) 0.5 (1.1-3.1) L 05/19/24 04:38 Eos # (Auto) 0.0 (0.0-0.2) 05/19/24 04:38 Baso # (Auto) 0.0 (0.0-0.1) 05/19/24 04:38 Absolute Gran (auto) 7.6 (2.3-6.0) H 05/19/24 04:38 BMP Sodium 137 mmol/L (136-145) 05/19/24 04:38 Potassium 2.4 mmol/L (3.6-5.2) L 05/19/24 04:38 Chloride 101.0 mmol/L (98-107) 05/19/24 04:38 Carbon Dioxide 28 mmol/L (21-32) 05/19/24 04:38 Anion Gap 8.0 mEq/L (4-14) 05/19/24 04:38 BUN 7 mg/dL (7-18) 05/19/24 04:38 Creatinine 0.6 mg/dL (0.6-1.3) 05/19/24 04:38 Estimated GFR 98.9 (>59.9) 05/19/24 04:38 Glucose 151 mg/dL (70-110) H 05/19/24 04:38 Calcium 8.0 mg/dL (8.5-10.1) L 05/19/24 04:38 Phosphorus 1.8 mg/dL (2.5-4.9) L 05/19/24 04:38 Magnesium 1.8 mg/dL (1.8-2.4) 05/18/24 04:28 Total Bilirubin 0.24 mg/dL (0.0-1.0) 05/19/24 04:38 AST 8 U/L (15-37) L 05/19/24 04:38 ALT 19 U/L (30-65) L 05/19/24 04:38 Alkaline Phosphatase 40 U/L (50-136) L 05/19/24 04:38 Total Protein 5.9 g/dL (6.4-8.2) L 05/19/24 04:38 Albumin 2.9 g/dL (3.4-5.0) L 05/19/24 04:38 Liver Function Total Bilirubin 0.24 mg/dL (0.0-1.0) 05/19/24 04:38 AST 8 U/L (15-37) L 05/19/24 04:38 ALT 19 U/L (30-65) L 05/19/24 04:38 Alkaline Phosphatase 40 U/L (50-136) L 05/19/24 04:38 Total Protein 5.9 g/dL (6.4-8.2) L 05/19/24 04:38 Albumin 2.9 g/dL (3.4-5.0) L 05/19/24 04:38 Urine Urine Color Dark yellow (STRAW/YELL.) 05/16/24 06:40 Urine Appearance Hazy (CLEAR) 05/16/24 06:40 Ur Specific [place] 1.015 (1.001-1.035) 05/16/24 06:40 Urine Protein Negative (NEGATIVE) 05/16/24 06:40 Urine Glucose (UA) Normal (NORMAL) 05/16/24 06:40 Urine Ketones Negative (NEGATIVE) 05/16/24 06:40 Urine Occult Blood Negative (NEG - TRACE) 05/16/24 06:40 Urine Nitrite Negative (NEGATIVE) 05/16/24 06:40 Urine Bilirubin Negative (NEGATIVE) 05/16/24 06:40 Urine Urobilinogen Normal (NORMAL) 05/16/24 06:40 Ur Leukocyte Esterase Positive (NEGATIVE) 05/16/24 06:40 Progress Note: A&P Assessment and Plan (1) Klebsiella pneumonia: (2) History of seizures: (3) Thrush, oral: (4) Cough: Qualifiers: Cough type: acute Qualified Code(s): R05.1 - Acute cough (5) Fever: Qualifiers: Fever type: due to other condition Qualified Code(s): R50.81 - Fever presenting with conditions classified elsewhere (6) General weakness: Plan Respiratory therapy for IS and acapella PT for chest PT Encourage ambulating and use of I&S for deep breathing Robitussin for cough and congestion Follow labs Replace Phos Increase fluids CBC, CMP, Mag, Phos in AM Fall Risk Details Abdi Fall Scale Risk Level: Low Fall Risk Current Medications: Current Medications Acetaminophen (Acetaminophen 500 Mg Tablet) 500 mg PO Q6H PRN PRN Reason: Headache Last Admin: 05/15/24 21:28 Dose: 500 mg Al Hydroxide/Mg Hydroxide (Magnesium Hydroxide 400 Mg/5 Ml Oral.Susp) 2,400 mg PO DAILY PRN PRN Reason: CONSTIPATION Albuterol Sulfate (Ipratropium/Albuterol Sulfate 3 Ml Ampul.Neb) 3 ml INH Q6H [facility] Last Admin: 05/19/24 07:40 Dose: 3 ml Budesonide (Budesonide 0.5 Mg/2 Ml Ampul.Neb) 1 mg INH RBID [facility] Last Admin: 05/19/24 07:40 Dose: 0.5 mg Divalproex Sodium (Divalproex Sodium 250 Mg Tab.Er.24h) 500 mg PO BID [facility] Last Admin: 05/19/24 09:58 Dose: Not Given Enoxaparin Sodium (Enoxaparin Sodium 40 Mg/0.4 Ml Syringe) 40 mg SUBQ DAILY [facility] Last Admin: 05/19/24 09:11 Dose: 40 mg Guaifenesin (Guaifenesin/Dextromethorphan 20/200mg/10 Ml Solution) 5 ml PO Q4H [facility] Last Admin: 05/19/24 10:44 Dose: 5 ml Hydroxyzine HCl (Hydroxyzine Hcl 25 Mg Tablet) 25 mg PO Q4H PRN PRN Reason: Itching Last Admin: 05/17/24 10:47 Dose: 25 mg Ceftriaxone Sodium 1 gm/ (Sodium Chloride) 50 mls @ 100 mls/hr IV DAILY [facility] Last Infusion: 05/19/24 10:00 Dose: Infused Azithromycin 500 mg/ Sodium (Chloride) 250 mls @ 250 mls/hr IV DAILY [facility] Last Infusion: 05/19/24 10:45 Dose: Infused Fluconazole (Fluconazole-Nacl 200 Mg/100 Ml) 100 mg in 50 mls @ 50 mls/hr IV Q24H [facility] Last Infusion: 05/18/24 14:29 Dose: Infused Sodium Chloride (Sodium Chloride) 1,000 mls @ 75 mls/hr IV CONT [facility] Last Admin: 05/19/24 10:50 Dose: 75 mls/hr Levothyroxine Sodium (Levothyroxine Sodium 75 Mcg Tablet) 75 mcg PO QDAC [facility] Last Admin: 05/19/24 07:30 Dose: 75 mcg Loratadine (Loratadine 5 Mg/5 Ml Solution) 10 mg PO DAILY [facility] Last Admin: 05/19/24 09:11 Dose: 10 mg Methylprednisolone Sodium Succinate (Methylprednisolone Sod Succ/Pf 40 Mg/Ml Vial) 40 mg INJ Q8H [facility] Last Admin: 05/19/24 09:11 Dose: 40 mg Pantoprazole Sodium (Pantoprazole Sodium 40 Mg Tablet.Dr) 40 mg PO Q12H [facility] Last Admin: 05/19/24 11:34 Dose: 40 mg Potassium Chloride (Potassium Cl 40 Meq/30 Ml 40 Meq/30 Ml Liquid) 40 meq PO BID [facility] Last Admin: 05/19/24 09:11 Dose: 40 meq Potassium Phosphate (Potassium Phosphate 500 Mg Tablet.[place]) 1,000 mg PO BID [facility] Last Admin: 05/19/24 10:02 Dose: 1,000 mg Sodium Chloride (Sodium Chloride 1,000 Mg Tablet) 1,000 mg PO Q12H [facility] Last Admin: 05/19/24 10:02 Dose: 1,000 mg Time Spent With Patient Time: Total time spent is greater than 50% in coordination of care (as documented) at patient's floor/unit and/or counseling patient:
[2024-05-19 14:51] LABS: Potassium 2.8 mmol/L (3.6-5.2)
[2024-05-20 05:45] LABS: Granulocytes % - Auto 90.1 % (47.8-71.3); Granulocytes#(Absolute)- Auto 9.5 (2.3-6.0); Hematocrit 30.4 % (35.9-46.7); Mean Corpuscular Volume 93.1 fl (81.0-93.7); Monocytes #(Absolute)- Auto 0.6 (1.1-3.1); Monocytes %(Percent)- Auto 5.6 % (3.6-9.8); Platelet Count 231 K/uL (152-353); White Blood Count 10.5 K/uL (4.3-9.3)
[2024-05-20 06:05] LABS: RBC Morphology Normal (Normal); Total Cells Counted 100
[2024-05-20 06:06] LABS: Potassium 3.3 mmol/L (3.6-5.2)
--- NOTE | 2024-05-20 07:03 | Event Note ---
Event Note Event Note: 0645 - I was notified by the primary bedside nurse of the critical lab, PHOS 1.2. I called and spoke with the pharm D concrete crusher loader operator, Kandis. We reviewed the orders, labs and recommendations for electrolytes replacement. PHARM D recommendations for replacement was PHOS < 1.5 18-21 mMol, or keep the order of 14 mMol and add a one time extra dose of K PHOS, which I did. Kandis states she will call the primary bedside nurse and speak with her about getting the IV PHOS for administering. Otherwise, the nurse did not voice any other acute medical concerns for the patient that I need to address at this time.
[2024-05-20] MEDS: MAGNESIUM SULFATE 1 GM/2 ML 1 GM in 0.9 % SODIUM CHLORIDE 100ML 100 ML IV ONE (08:49)
[2024-05-20] MEDS: MAGNESIUM SULFATE 1 GM/2 ML VIAL ONE (08:49)
[2024-05-20] MEDS: POTASSIUM PHOSPHATE 500 MG TABLET.SOL PO SCH (09:56)
[2024-05-20] MEDS: 0.9 % SODIUM CHLORIDE 100ML 100 ML IV ONE (09:57)
[2024-05-20] MEDS: SODIUM CHLORIDE 0.9% IV ONE ×2 (09:57→10:30)
[2024-05-20] MEDS: POTASSIUM PHOS M BASIC D BASIC IV ONE (09:57)
[2024-05-20] MEDS: POTASSIUM CHLORIDE 20 MEQ TAB.ER.PRT PO ONE (09:58)
[2024-05-20] MEDS: POTASSIUM PHOSPHATE 500 MG TABLET.SOL PO ONE (09:58)
[2024-05-20] MEDS: 0.9 % SODIUM CHLORIDE 250 ML IV ONE (09:59)
[2024-05-20] MEDS: SOD PHOSPHATE IV ONE (10:30)
--- NOTE | 2024-05-20 12:23 | Progress Note ---
Progress Note: Subjective Subjective Interval history: Patient sitting up in bed this morning upon rounds. Patient's respiratory symptoms have greatly improved. Continues to need electrolyte replacement even with our attempts to replace she had a critical phosphorous level this am. Exam Constitutional: normal general appearance, average body habitus and alert Vital Signs - 24 hr 05/19/24 12:59 05/19/24 13:47 05/19/24 16:00 Temperature 98 F 98.2 F Pulse Rate [Left B rachial] 81 83 Respiratory Rate 20 20 Blood Pressure [Le ft Arm] 144/60 134/53 Pulse Oximetry 97 99 92 L Oxygen Delivery Il thod Room Air Room Air 05/19/24 19:48 05/19/24 20:00 05/20/24 00:00 Temperature 98.3 F 97.7 F Pulse Rate [Left B rachial] 80 82 Respiratory Rate 18 17 Blood Pressure [Le ft Arm] 136/97 133/57 Pulse Oximetry 99 97 [facility] 05/20/24 01:52 05/20/24 04:00 05/20/24 07:22 Temperature 98 F 97.5 F L Pulse Rate [Left B rachial] 88 86 Respiratory Rate 17 20 Blood Pressure [Le ft Arm] 132/52 151/77 Pulse Oximetry 98 93 L [facility] 05/20/24 07:50 05/20/24 12:00 Temperature 98.5 F Pulse Rate [Left B rachial] 83 Respiratory Rate 20 Blood Pressure [Le ft Arm] 120/50 Pulse Oximetry 100 96 [facility] HENMT: normocephalic, head/scalp atraumatic, hearing grossly normal bilaterally, external ears normal, EACs normal, TMs normal bilaterally, nasal mucous membranes normal, external nose normal, oral mucous membranes normal and oropharynx normal Eyes: PERRL, EOMs intact bilaterally, conjunctivae normal, no scleral icterus and no papilledema Chest: inspection of chest normal Respiratory: breath sounds equal bilaterally, normal respiratory effort and no wheezes Cardiovascular: normal heart rate noted, regular rhythm noted, no gallop, no rub and no murmur Gastrointestinal: abdomen normal to inspection, abdomen soft to palpation, nontender to palpation, nontender to percussion, nondistended and normoactive bowel sounds Genitourinary: no CVA tenderness Extremities: normal to inspection, normal to palpation, no tenderness and full ROM Neurology: gait normal and speech normal tremors noted to BUE Psychiatry: mental status grossly normal Skin: skin color normal, no rash, no lesions, no ecchymosis noted, no wounds and no lacerations Progress Note: Objective Labs Labs: CBC WBC 10.5 K/uL (4.3-9.3) H 05/20/24 05:04 RBC 3.3 M/uL (4.00-5.50) L 05/20/24 05:04 Hgb 10.7 gm/dL (12.5-15.8) L 05/20/24 05:04 Hct 30.4 % (35.9-46.7) L 05/20/24 05:04 MCV 93.1 fl (81.0-93.7) 05/20/24 05:04 MCH 32.8 pg (27.6-32.2) H 05/20/24 05:04 MCHC 35.2 g/dl (33.1-35.3) 05/20/24 05:04 RDW 14.9 % (11.4-14.2) H 05/20/24 05:04 Plt Count 231 K/uL (152-353) 05/20/24 05:04 MPV 8.1 fl (6.9-10.8) 05/20/24 05:04 Gran % 90.1 % (47.8-71.3) H 05/20/24 05:04 Lymph % (Auto) 4.3 % (20.0-43.0) L 05/20/24 05:04 [place] % (Auto) 5.6 % (3.6-9.8) 05/20/24 05:04 Eos % (Auto) 0.0 % (0.4-2.8) L 05/20/24 05:04 Baso % (Auto) 0.0 (0.1-0.85) L 05/20/24 05:04 Lymph # (Auto) 0.5 (1.1-3.1) L 05/20/24 05:04 [place] # (Auto) 0.6 (1.1-3.1) L 05/20/24 05:04 Eos # (Auto) 0.0 (0.0-0.2) 05/20/24 05:04 Baso # (Auto) 0.0 (0.0-0.1) 05/20/24 05:04 Absolute Gran (auto) 9.5 (2.3-6.0) H 05/20/24 05:04 BMP Sodium 136 mmol/L (136-145) 05/20/24 05:04 Potassium 3.3 mmol/L (3.6-5.2) L 05/20/24 05:04 Chloride 100.0 mmol/L (98-107) 05/20/24 05:04 Carbon Dioxide 28 mmol/L (21-32) 05/20/24 05:04 Anion Gap 8.0 mEq/L (4-14) 05/20/24 05:04 BUN 5 mg/dL (7-18) L 05/20/24 05:04 Creatinine 0.7 mg/dL (0.6-1.3) 05/20/24 05:04 Estimated GFR 95.3 (>59.9) 05/20/24 05:04 Glucose 146 mg/dL (70-110) H 05/20/24 05:04 Calcium 8.0 mg/dL (8.5-10.1) L 05/20/24 05:04 Phosphorus 1.2 mg/dL (2.5-4.9) L* 05/20/24 05:04 Magnesium 1.9 mg/dL (1.8-2.4) 05/20/24 05:04 Total Bilirubin 0.28 mg/dL (0.0-1.0) 05/20/24 05:04 AST 17 U/L (15-37) 05/20/24 05:04 ALT 29 U/L (30-65) L 05/20/24 05:04 Alkaline Phosphatase 44 U/L (50-136) L 05/20/24 05:04 Total Protein 6.0 g/dL (6.4-8.2) L 05/20/24 05:04 Albumin 3.0 g/dL (3.4-5.0) L 05/20/24 05:04 Liver Function Total Bilirubin 0.28 mg/dL (0.0-1.0) 05/20/24 05:04 AST 17 U/L (15-37) 05/20/24 05:04 ALT 29 U/L (30-65) L 05/20/24 05:04 Alkaline Phosphatase 44 U/L (50-136) L 05/20/24 05:04 Total Protein 6.0 g/dL (6.4-8.2) L 05/20/24 05:04 Albumin 3.0 g/dL (3.4-5.0) L 05/20/24 05:04 Urine Urine Color Dark yellow (STRAW/YELL.) 05/16/24 06:40 Urine Appearance Hazy (CLEAR) 05/16/24 06:40 Ur Specific [place] 1.015 (1.001-1.035) 05/16/24 06:40 Urine Protein Negative (NEGATIVE) 05/16/24 06:40 Urine Glucose (UA) Normal (NORMAL) 05/16/24 06:40 Urine Ketones Negative (NEGATIVE) 05/16/24 06:40 Urine Occult Blood Negative (NEG - TRACE) 05/16/24 06:40 Urine Nitrite Negative (NEGATIVE) 05/16/24 06:40 Urine Bilirubin Negative (NEGATIVE) 05/16/24 06:40 Urine Urobilinogen Normal (NORMAL) 05/16/24 06:40 Ur Leukocyte Esterase Positive (NEGATIVE) 05/16/24 06:40 Progress Note: A&P Assessment and Plan (1) Klebsiella pneumonia: (2) Hypophosphatemia: (3) Hypokalemia: (4) History of seizures: (5) Thrush, oral: (6) Cough: Qualifiers: Cough type: acute Qualified Code(s): R05.1 - Acute cough Plan Respiratory therapy for IS and acapella PT for chest PT Encourage ambulating and use of I&S for deep breathing Robitussin for cough and congestion Follow labs Replace Phos Increase fluids D/C Lovenox and Solumedrol (can lower Phos) Give 1 GM Magnesium IV Increase Potassium Phosphate to 1000 mg QID CBC, CMP, Mag, Phos in AM FT4, TSH, Vitamin D, PTH Fall Risk Details Abdi Fall Scale Risk Level: Low Fall Risk Current Medications: Current Medications Acetaminophen (Acetaminophen 500 Mg Tablet) 500 mg PO Q6H PRN PRN Reason: Headache Last Admin: 05/15/24 21:28 Dose: 500 mg Al Hydroxide/Mg Hydroxide (Magnesium Hydroxide 400 Mg/5 Ml Oral.Susp) 2,400 mg PO DAILY PRN PRN Reason: CONSTIPATION Albuterol Sulfate (Ipratropium/Albuterol Sulfate 3 Ml Ampul.Neb) 3 ml INH Q6H [facility] Last Admin: 05/20/24 07:49 Dose: 3 ml Budesonide (Budesonide 0.5 Mg/2 Ml Ampul.Neb) 1 mg INH RBID [facility] Last Admin: 05/20/24 07:49 Dose: 0.5 mg Cefdinir (Cefdinir 300 Mg Capsule) 300 mg PO BID [facility] Divalproex Sodium (Divalproex Sodium 250 Mg Tab.Er.24h) 500 mg PO BID [facility] Last Admin: 05/20/24 09:59 Dose: Not Given Guaifenesin (Guaifenesin/Dextromethorphan 20/200mg/10 Ml Solution) 5 ml PO Q4H [facility] Last Admin: 05/20/24 11:35 Dose: Not Given Hydroxyzine HCl (Hydroxyzine Hcl 25 Mg Tablet) 25 mg PO Q4H PRN PRN Reason: Itching Last Admin: 05/17/24 10:47 Dose: 25 mg Fluconazole (Fluconazole-Nacl 200 Mg/100 Ml) 100 mg in 50 mls @ 50 mls/hr IV Q24H [facility] Last Infusion: 05/19/24 14:23 Dose: Infused Sodium Chloride (Sodium Chloride) 1,000 mls @ 75 mls/hr IV CONT [facility] Last Admin: 05/20/24 04:11 Dose: 75 mls/hr Potassium Phosphate 29.4156 (mmol/ Sodium Chloride) 259.8052 mls @ 42 mls/hr IV ONCE ONE Stop: 05/20/24 13:42 Last Admin: 05/20/24 09:57 Dose: 42 mls/hr Levothyroxine Sodium (Levothyroxine Sodium 75 Mcg Tablet) 75 mcg PO QDAC [facility] Last Admin: 05/20/24 09:58 Dose: 75 mcg Loratadine (Loratadine 5 Mg/5 Ml Solution) 10 mg PO DAILY [facility] Last Admin: 05/20/24 09:56 Dose: 10 mg Pantoprazole Sodium (Pantoprazole Sodium 40 Mg Tablet.Dr) 40 mg PO Q12H [facility] Last Admin: 05/19/24 23:50 Dose: 40 mg Potassium Chloride (Potassium Cl 40 Meq/30 Ml 40 Meq/30 Ml Liquid) 40 meq PO BID [facility] Last Admin: 05/20/24 10:29 Dose: 40 meq Potassium Phosphate (Potassium Phosphate 500 Mg Tablet.Xenia) 1,000 mg PO QID [facility] Last Admin: 05/20/24 09:56 Dose: 1,000 mg Sodium Chloride (Sodium Chloride 1,000 Mg Tablet) 1,000 mg PO Q12H [facility] Last Admin: 05/20/24 10:29 Dose: 1,000 mg Time Spent With Patient Time: Total time spent is greater than 50% in coordination of care (as documented) at patient's floor/unit and/or counseling patient:
[2024-05-20] MEDS: CEFDINIR 300 MG CAPSULE PO SCH (20:49)
[2024-05-21 05:04] LABS: Basophils%(Percent) Auto 0.4 (0.1-0.85); Eosinophils%(Percent) Auto 0.3 % (0.4-2.8); Granulocytes % - Auto 72.6 % (47.8-71.3); Granulocytes#(Absolute)- Auto 5.3 (2.3-6.0); Hematocrit 29.2 % (35.9-46.7); Mean Corpuscular Volume 94.2 fl (81.0-93.7); Monocytes #(Absolute)- Auto 0.6 (1.1-3.1); Monocytes %(Percent)- Auto 8.8 % (3.6-9.8); Platelet Count 207 K/uL (152-353); White Blood Count 7.3 K/uL (4.3-9.3)
[2024-05-21] MEDS: POTASSIUM PHOSPHATE 500 MG TABLET.SOL PO ONE (10:04)
[2024-05-21] MEDS: SODIUM CHLORIDE 1,000 MG TABLET PO SCH (10:07)
[2024-05-21] MEDS: ALBUMIN HUMAN 25% 100 ML IV ONE (10:08)
[2024-05-21] MEDS: ALENDRONATE 70 MG PO SCH (11:52)
--- NOTE | 2024-05-21 15:57 | Progress Note ---
Progress Note: Subjective Subjective Interval history: Patient sitting up in bed this morning upon rounds. Patient's respiratory symptoms have greatly improved. Continues to need electrolyte replacement even with our attempts to replace, her phosphorous level is low this am. Exam Exam: Patient in miller's position upon encounter for exam. Constitutional: normal general appearance, no apparent distress, average body habitus, no limitations and alert Vital Signs - 24 hr 05/20/24 16:00 05/20/24 20:00 05/20/24 20:31 Temperature 98.1 F 98 F Pulse Rate [Left B rachial] 80 79 Respiratory Rate 20 19 Blood Pressure [Le ft Arm] 151/72 151/64 Pulse Oximetry 97 97 94 L Oxygen Delivery Me thod Room Air 05/21/24 00:00 05/21/24 03:44 05/21/24 07:26 Temperature 97.7 F 97.5 F L Pulse Rate [Left B rachial] 85 86 Respiratory Rate 19 17 Blood Pressure [Le ft Arm] 134/48 139/65 Pulse Oximetry 97 97 94 L Oxygen Delivery Al thod Room Air Room Air 05/21/24 08:00 05/21/24 12:00 Temperature 98.2 F 98.3 F Pulse Rate [Left B rachial] 92 H 75 Respiratory Rate 19 18 Blood Pressure [Le ft Arm] 130/57 128/66 Pulse Oximetry 96 98 Oxygen Delivery Al thod Room Air Room Air HENMT: normocephalic, head/scalp atraumatic, hearing grossly normal bilaterally, external ears normal, EACs normal, TMs normal bilaterally, nasal mucous membranes normal, external nose normal, oral mucous membranes normal, oropharynx normal and gingiva abnormal Eyes: PERRL, EOMs intact bilaterally, conjunctivae normal, no scleral icterus, no papilledema, fundi normal bilaterally, alignment normal, periorbital findings normal and visual acuity normal Neck/C-Spine: visual inspection normal, trachea midline, cervical spine nontender, cervical full ROM noted and supple Lymph: no lymphadenopathy noted and no lymphedema noted Chest: inspection of chest normal and palpation of chest normal Respiratory: breath sounds equal bilaterally, normal respiratory effort, auscultation abnormal (diminished breath sound) (LL Lobe some sub-segmental atelectasis), no wheezes and rales noted Cardiovascular: normal heart rate noted, regular rhythm noted, no gallop, no rub, no murmur and no JVD Gastrointestinal: abdomen normal to inspection, abdomen soft to palpation, nontender to palpation, nontender to percussion, nondistended and normoactive bowel sounds Genitourinary: no CVA tenderness and bladder normal to palpation Back/Pelvis: spine normal to inspection, no thoracic spine tenderness, no lumbar spine tenderness, thoracic spine ROM normal and lumbar spine ROM normal Extremities: normal to inspection, normal to palpation, no tenderness, full ROM, no joint enlargement and no deformity Neurology: torsion spring coiling machine setter II-XII intact, no movement abnormality noted, no focal motor deficit noted, no sensory deficits noted, deep tendon reflexes 2+ bilaterally, gait normal, speech normal and coordination normal tremors noted to BUE Psychiatry: Mental Status Exam documented within this Exam's Psych section mental status grossly normal, oriented x3, thought process normal, cooperative, affect normal, psychomotor activity normal and memory normal Skin: skin color normal, no rash, no lesions, no ecchymosis noted, no wounds, no lacerations and skin turgor normal Progress Note: Objective Labs Labs: CBC WBC 7.3 K/uL (4.3-9.3) 05/21/24 05:00 RBC 3.1 M/uL (4.00-5.50) L 05/21/24 05:00 Hgb 10.2 gm/dL (12.5-15.8) L 05/21/24 05:00 Hct 29.2 % (35.9-46.7) L 05/21/24 05:00 MCV 94.2 fl (81.0-93.7) H 05/21/24 05:00 MCH 32.8 pg (27.6-32.2) H 05/21/24 05:00 MCHC 34.8 g/dl (33.1-35.3) 05/21/24 05:00 RDW 15.1 % (11.4-14.2) H 05/21/24 05:00 Plt Count 207 K/uL (152-353) 05/21/24 05:00 MPV 7.6 fl (6.9-10.8) 05/21/24 05:00 Gran % 72.6 % (47.8-71.3) H 05/21/24 05:00 Lymph % (Auto) 17.9 % (20.0-43.0) L 05/21/24 05:00 [place] % (Auto) 8.8 % (3.6-9.8) 05/21/24 05:00 Eos % (Auto) 0.3 % (0.4-2.8) L 05/21/24 05:00 Baso % (Auto) 0.4 (0.1-0.85) 05/21/24 05:00 Lymph # (Auto) 1.3 (1.1-3.1) 05/21/24 05:00 [place] # (Auto) 0.6 (1.1-3.1) L 05/21/24 05:00 Eos # (Auto) 0.0 (0.0-0.2) 05/21/24 05:00 Baso # (Auto) 0.0 (0.0-0.1) 05/21/24 05:00 Absolute Gran (auto) 5.3 (2.3-6.0) 05/21/24 05:00 BMP Sodium 130 mmol/L (136-145) L 05/21/24 05:00 Potassium 4.0 mmol/L (3.6-5.2) 05/21/24 05:00 Chloride 98.0 mmol/L (98-107) 05/21/24 05:00 Carbon Dioxide 27 mmol/L (21-32) 05/21/24 05:00 Anion Gap 5.0 mEq/L (4-14) 05/21/24 05:00 BUN 8 mg/dL (7-18) 05/21/24 05:00 Creatinine 0.6 mg/dL (0.6-1.3) 05/21/24 05:00 Estimated GFR 98.9 (>59.9) 05/21/24 05:00 Glucose 98 mg/dL (70-110) 05/21/24 05:00 Calcium 7.6 mg/dL (8.5-10.1) L 05/21/24 05:00 Phosphorus 1.8 mg/dL (2.5-4.9) L 05/21/24 05:00 Magnesium 2.0 mg/dL (1.8-2.4) 05/21/24 05:00 Total Bilirubin 0.32 mg/dL (0.0-1.0) 05/21/24 05:00 AST 10 U/L (15-37) L 05/21/24 05:00 ALT 23 U/L (30-65) L 05/21/24 05:00 Alkaline Phosphatase 40 U/L (50-136) L 05/21/24 05:00 Total Protein 5.5 g/dL (6.4-8.2) L 05/21/24 05:00 Albumin 2.7 g/dL (3.4-5.0) L 05/21/24 05:00 Liver Function Total Bilirubin 0.32 mg/dL (0.0-1.0) 05/21/24 05:00 AST 10 U/L (15-37) L 05/21/24 05:00 ALT 23 U/L (30-65) L 05/21/24 05:00 Alkaline Phosphatase 40 U/L (50-136) L 05/21/24 05:00 Total Protein 5.5 g/dL (6.4-8.2) L 05/21/24 05:00 Albumin 2.7 g/dL (3.4-5.0) L 05/21/24 05:00 Urine Urine Color Dark yellow (STRAW/YELL.) 05/16/24 06:40 Urine Appearance Hazy (CLEAR) 05/16/24 06:40 Ur Specific [place] 1.015 (1.001-1.035) 05/16/24 06:40 Urine Protein Negative (NEGATIVE) 05/16/24 06:40 Urine Glucose (UA) Normal (NORMAL) 05/16/24 06:40 Urine Ketones Negative (NEGATIVE) 05/16/24 06:40 Urine Occult Blood Negative (NEG - TRACE) 05/16/24 06:40 Urine Nitrite Negative (NEGATIVE) 05/16/24 06:40 Urine Bilirubin Negative (NEGATIVE) 05/16/24 06:40 Urine Urobilinogen Normal (NORMAL) 05/16/24 06:40 Ur Leukocyte Esterase Positive (NEGATIVE) 05/16/24 06:40 Imaging Chest x-ray: Radiologist's impression: XR CHEST 2V Date of Service: 05/21/24 HISTORY: pneumonia; COMPARISON: May 18, 2024 FINDINGS: The trachea is midline. The cardiac silhouette is normal in size. Mild emphysema is present. Mild bibasilar infiltrates are noted with small bilateral effusion. The bony thorax is unremarkable. IMPRESSION: Mild bibasilar infiltrates with small bilateral pleural effusion. Progress Note: A&P Assessment and Plan (1) Klebsiella pneumonia: Qualifiers: Laterality: unspecified laterality Lung location: unspecified part of lung Qualified Code(s): J15.0 - Pneumonia due to Klebsiella pneumoniae (2) Hypophosphatemia: (3) Hypokalemia: (4) History of seizures: (5) Thrush, oral: (6) Cough: Qualifiers: Cough type: acute Qualified Code(s): R05.1 - Acute cough Plan Respiratory therapy for IS and acapella PT for chest PT Encourage ambulating and use of I&S for deep breathing Robitussin for cough and congestion Follow labs Replace Phos Increase fluids D/C Lovenox and Solumedrol (can lower Phos) Give 1 GM Magnesium IV Increase Potassium Phosphate to 1000 mg QID CBC, CMP, Mag, Phos in AM FT4, TSH, Vitamin D, PTH Fall Risk Details Abdi Fall Scale Risk Level: Moderate Fall Risk Current Medications: Current Medications Acetaminophen (Acetaminophen 500 Mg Tablet) 500 mg PO Q6H PRN PRN Reason: Headache Last Admin: 05/15/24 21:28 Dose: 500 mg Al Hydroxide/Mg Hydroxide (Magnesium Hydroxide 400 Mg/5 Ml Oral.Susp) 2,400 mg PO DAILY PRN PRN Reason: CONSTIPATION Albuterol Sulfate (Ipratropium/Albuterol Sulfate 3 Ml Ampul.Neb) 3 ml INH Q6H [facility] Last Admin: 05/21/24 14:45 Dose: Not Given Budesonide (Budesonide 0.5 Mg/2 Ml Ampul.Neb) 1 mg INH RBID [facility] Last Admin: 05/21/24 07:26 Dose: 0.5 mg Cefdinir (Cefdinir 300 Mg Capsule) 300 mg PO BID [facility] Last Admin: 05/21/24 10:07 Dose: 300 mg Divalproex Sodium (Divalproex Sodium 250 Mg Tab.Er.24h) 500 mg PO BID [facility] Last Admin: 05/21/24 10:03 Dose: Not Given Guaifenesin (Guaifenesin/Dextromethorphan 20/200mg/10 Ml Solution) 5 ml PO Q4H [facility] Last Admin: 05/21/24 12:09 Dose: 5 ml Hydroxyzine HCl (Hydroxyzine Hcl 25 Mg Tablet) 25 mg PO Q4H PRN PRN Reason: Itching Last Admin: 05/17/24 10:47 Dose: 25 mg Fluconazole (Fluconazole-Nacl 200 Mg/100 Ml) 100 mg in 50 mls @ 50 mls/hr IV Q24H [facility] Last Admin: 05/21/24 14:38 Dose: 50 mls/hr Sodium Chloride (Sodium Chloride) 1,000 mls @ 75 mls/hr IV CONT [facility] Last Admin: 05/21/24 14:38 Dose: 75 mls/hr Levothyroxine Sodium (Levothyroxine Sodium 75 Mcg Tablet) 75 mcg PO QDAC [facility] Last Admin: 05/21/24 09:32 Dose: Not Given Loratadine (Loratadine 5 Mg/5 Ml Solution) 10 mg PO DAILY [facility] Last Admin: 05/21/24 10:06 Dose: 10 mg Non-Formulary Medication (Alendronate) 70 mg PO QWEEK [facility] Last Admin: 05/21/24 11:52 Dose: Not Given Pantoprazole Sodium (Pantoprazole Sodium 40 Mg Tablet.Dr) 40 mg PO Q12H [facility] Last Admin: 05/21/24 12:09 Dose: 40 mg Potassium Chloride (Potassium Cl 40 Meq/30 Ml 40 Meq/30 Ml Liquid) 40 meq PO BID [facility] Last Admin: 05/21/24 10:08 Dose: 40 meq Potassium Phosphate (Potassium Phosphate 500 Mg Tablet.Xenia) 1,000 mg PO QID [facility] Last Admin: 05/21/24 12:09 Dose: 1,000 mg Sodium Chloride (Sodium Chloride 1,000 Mg Tablet) 1,000 mg PO Q8H [facility] Last Admin: 05/21/24 10:07 Dose: 1,000 mg Time Spent With Patient Time: Total time spent is greater than 50% in coordination of care (as documented) at patient's floor/unit and/or counseling patient:
[2024-05-22 06:11] LABS: Basophils%(Percent) Auto 0.2 (0.1-0.85); Eosinophils#(Absolute)Auto 0.1 (0.0-0.2); Eosinophils%(Percent) Auto 1.2 % (0.4-2.8); Granulocytes % - Auto 67.6 % (47.8-71.3); Granulocytes#(Absolute)- Auto 4.8 (2.3-6.0); Hematocrit 31.5 % (35.9-46.7); Mean Corpuscular Volume 94.6 fl (81.0-93.7); Monocytes #(Absolute)- Auto 0.5 (1.1-3.1); Monocytes %(Percent)- Auto 7.1 % (3.6-9.8); Platelet Count 225 K/uL (152-353); White Blood Count 7.1 K/uL (4.3-9.3)
[2024-05-22 06:30] LABS: Potassium 5.4 mmol/L (3.6-5.2)
[2024-05-22 07:59] VITALS: BP 106/63; PULSE 75; RESP 18; TEMP 98.5
--- NOTE | 2024-05-22 10:17 | Discharge Summary ---
DS: Providers Provider Date of admission: 05/15/24 18:24 Primary care physician: Christina Braun DO Admitting clinician: Sandy Carlos Attending physician on admission: Christina Braun Consults: 05/17/24 09:41 Consult to Physical Therapy Routine Comment: Consulting Provider: Reason for consultation: chest physiopherapy and movement Physician Instructions: evaluate and treat 05/17/24 14:21 Consult to Physical Therapy Routine Comment: Consulting Provider: Reason for consultation: Chest PT Has provider been notified: Yes Physician Instructions: Not in fractured rib area 05/21/24 11:01 Consult to Physical Therapy Routine Comment: Consulting Provider: Reason for consultation: p[neumonia and edema Physician Instructions: evaluate and treat lymphedema and pulmonary physiotherapy Attending physician on discharge: Christina Braun Discharging clinician: Christina Braun Anticipated date of discharge: 05/22/24 DS: Diagnosis Discharge Diagnosis (1) Klebsiella pneumonia: Qualifiers: Laterality: unspecified laterality Lung location: unspecified part of lung Qualified Code(s): J15.0 - Pneumonia due to Klebsiella pneumoniae (2) Thrush, oral: (3) Hypokalemia: (4) Hyponatremia: (5) Hypophosphatemia: (6) History of seizures: (7) Cough: Qualifiers: Cough type: acute Qualified Code(s): R05.1 - Acute cough (8) Dehydration: (9) General weakness: (10) Fever: Qualifiers: Fever type: due to other condition Qualified Code(s): R50.81 - Fever presenting with conditions classified elsewhere DS: Summary Status at Discharge Overall status at discharge: patient is progressing back to baseline Time Spent with Patient Time attestation: Total time spent providing and/or coordinating discharge services: Exam Exam: Patient in miller's position upon encounter for exam. Constitutional: normal general appearance, no apparent distress, average body habitus, no limitations and alert Vital Signs - 24 hr 05/21/24 12:00 05/21/24 16:00 05/21/24 19:21 Temperature 98.3 F 98.6 F Pulse Rate [Left B rachial] 75 77 Respiratory Rate 18 18 Blood Pressure [Le ft Arm] 128/66 129/63 Pulse Oximetry 98 98 93 L Oxygen Delivery Me thod Room Air Room Air 05/21/24 20:00 05/21/24 23:37 05/22/24 03:33 Temperature 98.5 F 97.8 F 98.3 F Pulse Rate [Left B rachial] 93 H 80 77 Respiratory Rate 19 17 16 Blood Pressure [Le ft Arm] 158/59 123/48 129/55 Pulse Oximetry 100 94 L 97 Oxygen Delivery Me thod Room Air Room Air Room Air 05/22/24 07:58 05/22/24 09:19 Temperature 98.5 F Pulse Rate [Left B rachial] 75 Respiratory Rate 18 Blood Pressure [Le ft Arm] 106/63 Pulse Oximetry 94 L 94 L Oxygen Delivery Me thod Room Air HENMT: normocephalic, head/scalp atraumatic, hearing grossly normal bilaterally, external ears normal, EACs normal, TMs normal bilaterally, nasal mucous membranes normal, external nose normal, oral mucous membranes normal, oropharynx normal and gingiva abnormal Eyes: PERRL, EOMs intact bilaterally, conjunctivae normal, no scleral icterus, no papilledema, fundi normal bilaterally, alignment normal, periorbital findings normal and visual acuity normal Neck/C-Spine: visual inspection normal, trachea midline, cervical spine nontender, cervical full ROM noted and supple Lymph: no lymphadenopathy noted and no lymphedema noted Chest: inspection of chest normal and palpation of chest normal Respiratory: breath sounds equal bilaterally, normal respiratory effort, auscultation abnormal (diminished breath sound) (LL Lobe some sub-segmental atelectasis), no wheezes and rales noted Cardiovascular: normal heart rate noted, regular rhythm noted, no gallop, no rub, no murmur and no JVD Gastrointestinal: abdomen normal to inspection, abdomen soft to palpation, nontender to palpation, nontender to percussion, nondistended and normoactive bowel sounds Genitourinary: no CVA tenderness and bladder normal to palpation Back/Pelvis: spine normal to inspection, no thoracic spine tenderness, no lumbar spine tenderness, thoracic spine ROM normal and lumbar spine ROM normal Extremities: normal to inspection, normal to palpation, no tenderness, full ROM, no joint enlargement and no deformity 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, no movement abnormality noted, no focal motor deficit noted, no sensory deficits noted, deep tendon reflexes 2+ bilaterally, gait normal, speech normal and coordination normal tremors noted to E Psychiatry: Mental Status Exam documented within this Exam's Psych section mental status grossly normal, oriented x3, thought process normal, cooperative, affect normal, psychomotor activity normal and memory normal Skin: skin color normal, no rash, no lesions, no ecchymosis noted, no wounds, no lacerations and skin turgor normal DS: Data Data Completed and Pending Labs on day of discharge: Labs from last 24 hours 05/22/24 05/20/24 05:20 05:04 WBC 7.1 RBC 3.3 L Hgb 11.1 L Hct 31.5 L MCV 94.6 H MCH 33.4 H MCHC 35.3 RDW 15.0 H Plt Count 225 MPV 7.7 Gran % 67.6 Lymph % (Auto) 23.9 [place] % (Auto) 7.1 Eos % (Auto) 1.2 Baso % (Auto) 0.2 Lymph # (Auto) 1.7 [place] # (Auto) 0.5 L Eos # (Auto) 0.1 Baso # (Auto) 0.0 Absolute Gran (auto) 4.8 Sodium 131 L Potassium 5.4 H Chloride 98.0 Carbon Dioxide 28 Anion Gap 5.0 BUN 7 Creatinine 0.7 Estimated GFR 95.3 Glucose 90 Calcium 8.3 L Phosphorus 2.4 L Magnesium 2.0 Total Bilirubin 0.46 AST 8 L ALT 27 L Alkaline Phosphatase 37 L B-Natriuretic Peptide 92.3 Total Protein 5.8 L Albumin 3.2 L PTH Intact 77 H Discharge Plan Discharge Disposition: Home, Self-Care Condition: Improved Discharge Medications: New fluconazole [Diflucan] 200 mg tablet 200 mg PO DAILY Qty: 5 0RF albuterol sulfate 90 mcg/actuation aerosol powdr breath activated 2 inh inhalation Q6H PRN (Reason: shortness of breath) Qty: 1 0RF Rx Instructions: with a spacer please sodium chloride 1,000 mg tablet,soluble 1,000 mg PO TID Qty: 90 0RF K-Phos Original 500 mg tablet,soluble 500 mg PO BID Qty: 30 0RF Continued alendronate 70 mg tablet 70 mg PO QWEEK Patient Comments: TAKE 1 TABLET BY MOUTH ONCE A WEEK 30 MINUTES BEFORE THE FIRST FOOD,BEVERAGE OR MEDICINE OF THE DAY WITH PLAIN WATER divalproex 250 mg tablet extended release 24 hr 500 mg PO BID Patient Comments: TAKE TWO TABLETS BY MOUTH TWICE DAILY hydrochlorothiazide 12.5 mg tablet 12.5 mg PO DAILY Patient Comments: TAKE 1 TABLET BY MOUTH ONCE DAILY IN THE MORNING levothyroxine 75 mcg tablet 75 mcg PO QDAC Patient Comments: TAKE 1 TABLET BY MOUTH IN THE MORNING ON AN EMPTY STOMACH calcium carbonate [Calcium 600] 600 mg calcium (1,500 mg) tablet 600 mg PO DAILY Discharge Orders: Discharge Order (Routine); Ordered 05/22/24 Ordered By: Christina Braun Activity: increase activity as tolerated Diet: advance to your usual diet Interventions: Discharge Assessment Last Done: 05/22/24 10:20 MED/SURG & ICU Observation Charge Sheet Last Done: 05/22/24 10:25 Patient Instructions: Bacterial Pneumonia (DC) Activity Restrictions/Additional Instructions: increase water and zero calorie electrolyte drinks salt foods repeat BMP at DOCS on 05/24/2024 and follow up PCP in 7 days continue IS at home and walking around and out of bed except to sleep increase water and salt and protein in her diet CONTINUE WITH NEW MEDICATIONS DIRECTED Forms: Portal/Health Info Access Inst Discharge Date/Time: 05/22/24 10:54
== END 2024-05-22 10:54 | disposition home or self-care (01) | DRG 194 ==
LOC: MS → OBSVTOIN 18:24
PROVIDERS: ADMIT Family Medicine; ATTEND Family Medicine
DX: Z87.898 Personal history of other specified conditions; E86.0 Dehydration; E87.6 Hypokalemia; J13 Pneumonia due to Streptococcus pneumoniae; R53.1 Weakness; R05.1 Acute cough; J15.0 Pneumonia due to Klebsiella pneumoniae; R50.81 Fever presenting with conditions classified elsewhere; E87.1 Hypo-osmolality and hyponatremia; E83.39 Other disorders of phosphorus metabolism; B37.0 Candidal stomatitis